=== PATIENT | male | born 1970 | race Caucasian/White ===

== ENCOUNTER 2019-04-13 07:16 | Inpatient (IN) | payer BC ==
[~2019-04-13] VITALS: Ht 185.4 cm; Wt 92.7 kg
[~2019-04-13 07:16] MED LIST: ALLEGRA 180MG180 MG PO; AMOXICILLIN 8751 TAB PO; COLACE 100100 MG/CAP PO; MOTRIN 600600 MG/TAB PO; NEURONTIN100 MG/CAP PO; PRILOSEC 20MG20 MG PO; ROXICODONE 55 MG/TAB PO
[2019-04-13 08:09] LABS: HEMATOCRIT 46.2 % (42.0-52.0); HEMOGLOBIN 15.6 g/dl (13.5-18.0); MEAN CELL VOLUME 90 fl (80.0-100.0); MEAN CORPUSCULAR HEMOGLOBIN 30 pg (27.0-31.0); MEAN CORPUSCULAR HGB CONC 34 g/dl (33.0-37.0); MEAN PLATELET VOLUME 9.4 fl (7.4-10.4); PLATELET COUNT 255 K/mm3 (130-400); RED BLOOD COUNT 5.13 M/mm3 (4.20-5.60)
[2019-04-13] MEDS ORDERED: MICARDIS80 MG PO (08:10)
[2019-04-13 08:19] LABS: ALBUMIN 4.9 gm/dL (3.5-5.0); BILIRUBIN,TOTAL 0.8 mg/dL (0.0-1.0); C-REACTIVE PROTEIN 0.6 mg/dL (0.0-0.9); CALCIUM 10.3 mg/dL (8.4-10.2); CREATININE, serum 0.79 (0.66-1.25); POTASSIUM 4.3 mmol/L (3.4-5.0); TOTAL PROTEIN 8.3 gm/dL (6.4-8.2)
[2019-04-13 09:12] LABS: BAND 7 % (0-10); LYMPHOCYTE 4 % (20.0-51.0); NEUTROPHILS 88 % (42.0-75.2); PLATELET ESTIMATE NORMAL (NORMAL)
[2019-04-13 09:56] LABS: COLLECTION METHOD CLEAN CATCH
[2019-04-13 10:07] LABS: MUCOUS Present /lpf; PH 7 (5-8); SQUAMOUS EPITHELIAL None Seen /hpf; URINE APPEARANCE Clear; URINE BACTERIA None Seen /hpf; URINE BILIRUBIN Negative (NEGATIVE); URINE BLOOD Negative (NEGATIVE); URINE COLOR Yellow; URINE GLUCOSE Negative (NEGATIVE); URINE KETONE Negative (NEGATIVE); URINE LEUKOCYTE ESTERASE Negative (NEGATIVE); URINE NITRATE Negative (NEGATIVE); URINE PROTEIN(semi-quant) 1+ (NEGATIVE)
[2019-04-13 11:12] VITALS: BP 115/71; PULSE 87; TEMP 98
--- NOTE | 2019-04-13 11:40 | NUR ---
Patient up from ER. Alert and oriented x3. Spouse at bedside. Denies pain at this time. Initial and shift assessment complete. Patient and family oriented to room. No further needs at this time.
[2019-04-13 13:07] VITALS: BP 115/71; PULSE 87; TEMP 98
[2019-04-13 15:49] VITALS: BP 124/73; PULSE 78; TEMP 98.4
--- NOTE | 2019-04-13 19:03 | NUR ---
Patient has done well throughout the day. c/o pain 02/18 to abdomen, medication givne per orders. Patient also requests zofran for nausea, given per orders. Reported off to shift stacker. Denies further needs at this time.
--- NOTE | 2019-04-13 19:35 | NUR ---
Patient assessment completed and charted at this time, please see documentation for details. Patient resting in chair, had small amount of bile emesis. Stated he waited too long for pain/nausea medication, doing better currently. Will continue to monitor. Call light within reach.
[2019-04-13 20:30] VITALS: BP 120/76; PULSE 65; TEMP 98.5
[2019-04-14 00:02] VITALS: BP 111/70; PULSE 53; TEMP 98.1
[2019-04-14 04:26] VITALS: BP 100/70; PULSE 72; TEMP 97.8
[2019-04-14 07:33] VITALS: BP 105/68; PULSE 58; TEMP 98.3
[2019-04-14 08:30] LABS: HEMATOCRIT 39.9 % (42.0-52.0); MEAN CELL VOLUME 93 fl (80.0-100.0); MEAN CORPUSCULAR HEMOGLOBIN 31 pg (27.0-31.0); MEAN CORPUSCULAR HGB CONC 34 g/dl (33.0-37.0); MEAN PLATELET VOLUME 9.4 fl (7.4-10.4); PLATELET COUNT 215 K/mm3 (130-400); RED BLOOD COUNT 4.31 M/mm3 (4.20-5.60); REDCELL DISTRIBUTION WIDTH-CV 12.3 % (11.5-14.5)
[2019-04-14 08:33] LABS: HEMOGLOBIN 13.4 g/dl (13.5-18.0)
[2019-04-14 08:37] LABS: CREATININE, serum 0.93 (0.66-1.25)
[2019-04-14 08:38] LABS: CALCIUM 8.8 mg/dL (8.4-10.2); POTASSIUM 4.4 mmol/L (3.4-5.0)
--- NOTE | 2019-04-14 09:15 | NUR ---
Patient alert and oriented, answers questions appropriately. See assessment. Abdomen soft, non tender, non distended. Bowel sounds hyperactive x4 quads. +Flatus. No c/o at this time.
[2019-04-14 09:24] LABS: BAND 11 % (0-10); EOSINOPHIL 3 % (0-4); LYMPHOCYTE 43 % (20.0-51.0); NEUTROPHILS 38 % (42.0-75.2)
[2019-04-14 09:25] LABS: PLATELET ESTIMATE NORMAL (NORMAL)
[2019-04-14 13:06] VITALS: BP 109/71; PULSE 65; TEMP 98.2
--- NOTE | 2019-04-14 13:58 | NUR ---
Plan to return home with his Radha . Patient reports that he obtains meds form [facility]. Patients reported PCP is Dr. Evans, Denies the need for any HHS or DME. Pat reports f/u in Fall with PCP for physical. No DPOA but verbalizes as default. Patient indicated he could transport self. No additonal needs. Educated of resource in community. Will follow.
--- NOTE | 2019-04-14 14:57 | NUR ---
Discharge instructions reviewed with patient and spouse, verbalized understanding. Discharged ambulatory to auto/home with spouse at 1415.
== END 2019-04-14 14:15 | disposition home or self-care (01) | DRG 390 ==
LOC: COL.ER 07:16 → SURG 09:30
PROVIDERS: Family Medicine; ADMIT Surgery
DX: K56.609 Unspecified intestinal obstruction, unspecified as to partial versus complete obstruction (principal); I10 Essential (primary) hypertension; K21.9 Gastro-esophageal reflux disease without esophagitis; Z90.49 Acquired absence of other specified parts of digestive tract; Z87.891 Personal history of nicotine dependence
CPT/HCPCS: J1170; J2405; J2550; J7030; J7042; J7120; Q9967

== ENCOUNTER 2019-08-25 18:25 | Observation (INO) | payer BC ==
[~2019-08-25] VITALS: Ht 185.4 cm; Wt 93.6 kg
[~2019-08-25 18:25] MED LIST changes: +MICARDIS80 MG PO
[2019-08-25 19:16] LABS: BASO % 0.2 % (0.0-2.0); EOS % 0.1 % (0-4.0); GRAN # 10.5 (1.4-6.5); GRAN % 82.2 % (42.2-75.2); HEMATOCRIT 46.8 % (42.0-52.0); HEMOGLOBIN 15.6 g/dl (13.5-18.0); LYMPH # 1.3 (1.2-3.4); LYMPH % 9.8 % (20.0-51.0); MEAN CELL VOLUME 91 fl (80.0-100.0); MEAN CORPUSCULAR HEMOGLOBIN 30 pg (27.0-31.0); MEAN CORPUSCULAR HGB CONC 33 g/dl (33.0-37.0); MEAN PLATELET VOLUME 9.4 fl (7.4-10.4); MONO # 0.9 (0.1-0.6); MONO % 7.2 % (1.7-9.3); PLATELET COUNT 271 K/mm3 (130-400); RED BLOOD COUNT 5.16 M/mm3 (4.20-5.60); REDCELL DISTRIBUTION WIDTH-CV 12.2 % (11.5-14.5)
[2019-08-25 19:28] LABS: COLLECTION METHOD CLEAN CATCH
[2019-08-25 19:30] LABS: ALANINE AMINOTRANSFERASE 30 U/L (21-72); ALKALINE PHOSPHATASE 84 U/L (50-136); ANION GAP 13 mmol/L (7-16); AST,SGOT 27 U/L (15-37); BILIRUBIN,TOTAL 0.7 mg/dL (0.0-1.0); BLOOD UREA NITROGEN 19 mg/dL (9-20); C-REACTIVE PROTEIN 0.5 mg/dL (0.0-0.9); CALCIUM 9.8 mg/dL (8.4-10.2); CARBON DIOXIDE 25 mmol/L (22-30); CHLORIDE 101 mmol/L (98-107); CREATININE, serum 0.99 (0.66-1.25); GLUCOSE 153 mg/dL (74-106); LIPASE 33 U/L (23-300); POTASSIUM 4.1 mmol/L (3.4-5.0); SODIUM 139 mmol/L (137-145)
[2019-08-25 19:38] LABS: MUCOUS Present /lpf; PH 6 (5-8); SQUAMOUS EPITHELIAL None Seen /hpf; URINE APPEARANCE Hazy; URINE BACTERIA None Seen /hpf; URINE BILIRUBIN Negative (NEGATIVE); URINE BLOOD Negative (NEGATIVE); URINE COLOR Amber; URINE GLUCOSE Negative (NEGATIVE); URINE KETONE Trace (NEGATIVE); URINE LEUKOCYTE ESTERASE Negative (NEGATIVE); URINE NITRATE Negative (NEGATIVE); URINE PROTEIN(semi-quant) 2+ (NEGATIVE); URINE RBC 0-2 /hpf
[2019-08-25 19:38] LABS: TROPONIN-I < 0.012 ng/mL (0.000-0.035)
[2019-08-25 21:59] VITALS: BP 135/76; PULSE 75; TEMP 98.8
--- NOTE | 2019-08-25 23:10 | NUR ---
PATIENT UP TO ROOM 323 AT 2150. AMBULATED FROM STRETCHER TO BED WITH STANDBY ASSIST. INITIAL DONE BY BRINA PATTERSON. ADMISSION B COMPLETED. C/O LOWER ABD PAIN 12/19, REQUEST ADDITIONAL PAIN MEDICINE. PRN DILAUDID GIVEN. DENIES NAUSEA AT THIS TIME. NS INFUSING AT 125 ML/HR TO L AC IV. NO FURTHER NEEDS AT THIS TIME. WILL CONTINUE TO MONITOR.
[2019-08-25 23:36] VITALS: BP 125/75; PULSE 79; TEMP 98.2
[2019-08-26 03:46] VITALS: BP 138/82; PULSE 62; TEMP 97.4
[2019-08-26 07:11] LABS: ALBUMIN 3.8 gm/dL (3.5-5.0); BILIRUBIN,TOTAL 0.7 mg/dL (0.0-1.0); CALCIUM 8.9 mg/dL (8.4-10.2); CREATININE, serum 0.87 (0.66-1.25); POTASSIUM 4.1 mmol/L (3.4-5.0); TOTAL PROTEIN 6.3 gm/dL (6.4-8.2)
[2019-08-26 07:13] LABS: BASO % 0.1 % (0.0-2.0); EOS % 0.5 % (0-4.0); GRAN # 5.9 (1.4-6.5); GRAN % 73.2 % (42.2-75.2); HEMATOCRIT 39.7 % (42.0-52.0); LYMPH # 1.2 (1.2-3.4); LYMPH % 14.3 % (20.0-51.0); MEAN CELL VOLUME 92 fl (80.0-100.0); MEAN CORPUSCULAR HEMOGLOBIN 31 pg (27.0-31.0); MEAN CORPUSCULAR HGB CONC 34 g/dl (33.0-37.0); MEAN PLATELET VOLUME 9.3 fl (7.4-10.4); MONO % 11.7 % (1.7-9.3); PLATELET COUNT 212 K/mm3 (130-400); RED BLOOD COUNT 4.34 M/mm3 (4.20-5.60); REDCELL DISTRIBUTION WIDTH-CV 12.2 % (11.5-14.5)
[2019-08-26 07:19] LABS: HEMOGLOBIN 13.4 g/dl (13.5-18.0)
[2019-08-26 07:27] VITALS: BP 123/69; PULSE 73; TEMP 99.5
--- NOTE | 2019-08-26 08:45 | NUR ---
CRITICAL LAB RESULT CALLED TO DR. GREEN HGB OF 13.4. NO ORDERS GIVEN. MADE AWARE OF MORNING TEMPERATURE OF 99.4. TYLENOL 650 MG PO Q6H PRN TORB DR. GREEN TO THIS NURSE.
--- NOTE | 2019-08-26 09:11 | NUR ---
PATIENT RESTING IN BED WITH HIS PRESENT AT THE BEDSIDE. PATIENT IS A&OX4. PATIENT HAS A TEMPURATURE OF 99.5. PATIENT GIVEN 650 MG PO TYLENOL AT THIS TIME. VSS. BOWEL SOUNDS ACTIVE ALL FOUR QUADRANTS. PATIENT IS CURRENTLY NPO. PATIENT DENIES COMPLAINTS OF NAUSEA AND VOMITING. PATIENT REPORTS ABDOMEN SORENESS RATED A 1/10 ON A 0-10 SCALE. PATIENT STATES THAT HE HAD ONE SMALL EPISODE OF DIARRHEA AND ONE SMALL EPISODE OF LOOSE STOOL OVERNIGHT. PATIENT DENIES ANY BOWEL MOVEMENTS THIS MORNING. ABDOMEN SOFT UPON PALPATION. POSITIVE PEDAL PULSES. IV FLUIDS INFUSING TO LEFT AC IV VIA PUMP. CALL LIGHT WITHIN REACH. PATIENT DENIES ANY OTHER NEEDS AT THIS TIME.
--- NOTE | 2019-08-26 10:05 | NUR ---
EMILIE met with the patient and his , Lureds (ph#[phone]), to discuss discharge plan. The patient lives in [place] with his . He reports independence with ADLs and does not have any DME. The patient's PCP is Dr. Jarvis Lynne and he receives his medications at [facility]. He reports no difficulties obtaining his meds. The patient does not have advanced directives in EMR, but he states that he does have them completed. He states that his is his DPOA-HC. The patient plans to return home with his upon discharge. No additional needs at this time.
[2019-08-26 11:27] VITALS: BP 133/79; PULSE 60; TEMP 98.2
--- NOTE | 2019-08-26 12:10 | NUR ---
First visit from the research chemist. No needs right now.
--- NOTE | 2019-08-26 13:25 | NUR ---
PATIENT STATES THAT LUNCH WENT WELL. DENIES COMPLAINTS OF N/V. CALL LIGHT WITHIN REACH. PATIENT DENIES ANY OTHER NEEDS AT THIS TIME.
[2019-08-26 15:06] VITALS: BP 123/75; PULSE 61; TEMP 98.1
--- NOTE | 2019-08-26 15:53 | NUR ---
NOTIFIED THAT THE PATIENT TOLERATED CLEAR LIQUIDS WITHOUT ANY COMPLAINTS AND THAT THE PATIENT IS EAGER TO GET HOME. ORDER GIVEN TO ADVANCE DIET TO MECHANICAL SOFT FOR DINNER TORB TO THIS NURSE.
--- NOTE | 2019-08-26 18:59 | NUR ---
REPORT GIVEN TO MIKEY PHELPS.
--- NOTE | 2019-08-26 19:05 | NUR ---
DR. GREEN NOTIFIED THAT THE PATIENT TOLERATED DINNER WELL. PATIENT DENIES NAUSEA, VOMITING OR PAIN. PATIENT REPORTS HAVING ONE SMALL SOFT STOOL. PATIENT IS READY TO DISCHARGE.
[2019-08-26 19:38] VITALS: BP 126/89; PULSE 62; TEMP 97.8
--- NOTE | 2019-08-26 19:49 | NUR ---
Sitting up in room. Denies pain. Says that he is passing gas and has had a couple BMs today. Is ready to go home. Discharge instructions reviewed. IV site dc'd with catheter intact. Spouse in room with the patient. Will escort out via wheelchair.
== END 2019-08-26 20:02 | disposition home or self-care (01) ==
LOC: COL.ER 18:25 → SURG 20:55
PROVIDERS: Emergency Medicine; ADMIT Surgery
DX: K56.600 Partial intestinal obstruction, unspecified as to cause (principal); I10 Essential (primary) hypertension; Z88.6 Allergy status to analgesic agent
CPT/HCPCS: G0378; J1170; J2405; J3010; J7030; Q9967

== ENCOUNTER 2020-03-14 02:05 | Observation (INO) | payer BC ==
[~2020-03-14] VITALS: Ht 182.9 cm; Wt 90.1 kg
[2020-03-14 03:26] LABS: BASO % 0.2 % (0.0-2.0); EOS # 0.1 (0.0-0.7); EOS % 0.4 % (0-4.0); GRAN # 10.6 (1.4-6.5); GRAN % 85.8 % (42.2-75.2); HEMATOCRIT 46.7 % (42.0-52.0); HEMOGLOBIN 15.6 g/dl (13.5-18.0); LYMPH % 7.7 % (20.0-51.0); MEAN CELL VOLUME 91 fl (80.0-100.0); MEAN CORPUSCULAR HEMOGLOBIN 30 pg (27.0-31.0); MEAN CORPUSCULAR HGB CONC 33 g/dl (33.0-37.0); MEAN PLATELET VOLUME 9.2 fl (7.4-10.4); MONO # 0.7 (0.1-0.6); MONO % 5.6 % (1.7-9.3); PLATELET COUNT 245 K/mm3 (130-400); RED BLOOD COUNT 5.16 M/mm3 (4.20-5.60)
[2020-03-14 03:36] LABS: ALBUMIN 4.8 gm/dL (3.5-5.0); BILIRUBIN,TOTAL 0.7 mg/dL (0.0-1.0); CREATININE, serum 0.94 (0.66-1.25); TOTAL PROTEIN 8.1 gm/dL (6.4-8.2)
[2020-03-14 06:00] VITALS: BP 131/83; PULSE 68; TEMP 98.1
--- NOTE | 2020-03-14 06:00 | NUR ---
Received patient via wheelchair from ER. Patient is alert and oriented. Assesment and med rec completed. Patient reports pain of 6/10 on his middle lower abdomen. Morphine IV PRN given. Started NS at 150ml/hr. Denies nausea or vomiting. Will endorse to day shift nurse.
[2020-03-14] MEDS ORDERED: CHLOR TRIMETON 44 MG PO (06:16)
--- NOTE | 2020-03-14 07:27 | NUR ---
Dr Larson here to see patient.
--- NOTE | 2020-03-14 11:20 | NUR ---
Patient alert and oriented, answers questions appropriately. See assessment. Abdomen rounded, firm. Bowel sounds tinkling. No flatus. C/o nausea and abdominal pain, medications given. Encouraged ambulation. No other c/o at this time.
[2020-03-14 11:28] VITALS: BP 132/71; PULSE 62; TEMP 97.9
[2020-03-14 16:34] VITALS: BP 123/73; PULSE 59; TEMP 98
[2020-03-14 19:54] VITALS: BP 121/82; PULSE 59; TEMP 98.6
--- NOTE | 2020-03-14 20:17 | NUR ---
STILL UNABLE TO KEEP FOOD/FLUIDS DOWN, ACTIVELY VOMITING. MEDICATED WITH ZOFRAN 4MG IVP AND MORPHINE 2MG IVP AT THIS TIME. BOWEL SOUNDS HYPOACTIVE. RESTARTED IVF.
--- NOTE | 2020-03-14 22:43 | NUR ---
Pt has showered and walked the hallway, reports passing gas after Dulcolax suppos and ambulating. Medicated with Morphine 2mg IVP after restarting new IV site to right forearm. IVF infusing without problem.
[2020-03-15 00:03] VITALS: BP 114/65; PULSE 57; TEMP 98.7
[2020-03-15 04:14] VITALS: BP 101/56; PULSE 59; TEMP 98.6
--- NOTE | 2020-03-15 04:18 | NUR ---
PT AWAKE, REPORTS HAVING STOOL AND ABD FEELING BETTER. DENIES NEED FOR PAIN MEDS AT THIS TIME.
--- NOTE | 2020-03-15 07:23 | NUR ---
Patient sitting up in bed eating low fiber breakfast without nausea. He denies pain. Feeling much better anticipating discharge home today. Ivf per orders. He reports having more bowel movements this am. Voiding without difficulty.
--- NOTE | 2020-03-15 08:33 | NUR ---
rounded, discharge orders obtained. Patient given discharge instructions, denies questions & concerns. His to take him home. He ambulated the halls.
--- NOTE | 2020-03-15 09:25 | NUR ---
Patient ambulated out with all belongigns, his taking him home
== END 2020-03-15 09:30 | disposition home or self-care (01) ==
LOC: COL.ER 02:05 → SURG 04:31
PROVIDERS: Emergency Medicine; ADMIT Surgery
DX: R10.9 Unspecified abdominal pain (principal); I10 Essential (primary) hypertension; Z88.5 Allergy status to narcotic agent; Z88.8 Allergy status to other drugs, medicaments and biological substances
CPT/HCPCS: J2270; J2405; J7030

== ENCOUNTER → 2020-04-29 | Outpatient (CLI) | payer BC ==
[~2020-04-29] MED LIST changes: +CHLOR TRIMETON 44 MG PO
== END ==
LOC: COL.RAD 07:10
DX: Q43.0 Meckel's diverticulum (displaced) (hypertrophic) (principal); Z90.49 Acquired absence of other specified parts of digestive tract
CPT/HCPCS: Q9967

== ENCOUNTER → 2024-05-10 | Outpatient (CLI) | payer BC ==
[~2024-05-10] MED LIST changes: +Iohexol 300 - 100 ML VIAL IV ONE; +NS 100 ML IV SCH
== END ==
LOC: COL.RAD 13:36
DX: R10.11 Right upper quadrant pain (principal); N28.1 Cyst of kidney, acquired
CPT/HCPCS: Q9967